=== PATIENT | female | born 1960 | race Caucasian/White ===

== ENCOUNTER → 2021-02-13 16:46 | Outpatient (CLI) | payer OTHER, SELFPAY ==
--- NOTE | ~2021-02-13 | MM_ITS ---
EXAMINATION: MM screening [facility] BI w le HISTORY: Screening mammogram TECHNIQUE: Craniocaudal and mediolateral oblique 3-D tomosynthesis images were obtained and synthetic 2-D images were generated. CAD analysis was submitted and interpreted. COMPARISON: 01/25/2019, 08/14/2017, 07/04/2015 BREAST PARENCHYMAL COMPOSITION: The breasts are heterogeneously dense, which may obscure small masses . FINDINGS: There is no evidence of suspicious mass, calcification, or architectural distortion to sugg est malignancy in either breast. There has been no suspicious interval change. IMPRESSION: 1. No mammographic evidence of malignancy. 2. Recommend routine screening mammography in one year. BI-RADS Category 1: Negative Reviewed, dictated and finalized at location [facility].
== END ==
PROVIDERS: PCP Family Medicine; Visit Provider Family Medicine
DX: Z12.31 Encounter for screening mammogram for malignant neoplasm of breast (principal)
CPT/HCPCS: 77063; 77067

== ENCOUNTER 2023-08-08 08:24 | Emergency (ER) | payer OTHER, SELFPAY ==
--- NOTE | ~2023-08-08 | CT_ITS ---
EXAMINATION: CT abdomen pelvis w con DATE: 08/08/2023 09:10 INDICATION: Mid abdominal pain for 2 days. Vomiting. TECHNIQUE: Computed tomography (CT) of the abdomen and pelvis was performed with 100 CC Omnipaque 350 intravenous contrast. Automated exposure control and iterative reconstruction technique were employe d. Exam dose: 597.19 mGy-cm total exam DLP. COMPARISON: None. FINDINGS: The lung bases are clear. Normal heart size. No pericardial or pleural effusion. Status post cholecystectomy. No hepatic, pancreatic, splenic, and adrenal or renal space-occupying ma ss lesion is evident. Normal splenic size. No bile duct or pancreatic duct dilatation. No urinary tract calculus or hydroureteronephrosis. The urinary bladder is unremarkable. IUD within the uterus. The uterus and adnexal areas are otherwise unremarkable. There is atherosclerotic calcification but normal caliber of the abdominal aorta. No intraperitoneal or retroperitoneal or pelvic mass lesion or adenopathy or ascites. Mild colonic diverticulosis; no CT evidence of diverticulitis. There is liquid stool within the colon and some nondilated fluid containing small bowel segments with occasional air-fluid levels. Findings may be due to enterocolitis. No bowel obstruction, bowel wall thickening, pneumatosis or intraperito kristen free air is detected. Normal appendix. Severe degenerative disc disease at L5-S1. No suspicious osteolytic or osteoblastic lesions are noted. IMPRESSION: Fluid levels in the small bowel and colon, without obstruction, suggesting enterocolitis Normal appendix Status post cholecystectomy Reviewed, dictated and finalized at [facility]. Reviewed, dictated and finalized at location B. IMPRESSION: Fluid levels in the small bowel and colon, without obstruction, flores ggesting enterocolitis Normal appendix Status post cholecystectomy
[2023-08-08 08:15] VITALS: BP 137/75; PULSE 85; RESP 17; TEMP 36.3; O2SAT 100
[2023-08-08 08:43] LABS: Basophils Percent Auto 0.4 % (0.2-1.2); Eosinophils Absolute Auto 0.1 K/mm3 (0-0.3); Eosinophils Percent Auto 0.9 % (0-4.4); Hematocrit 46.6 % (37.0-47.0); Hemoglobin 16.1 g/dL (12.0-15.0); Immature Granulocyte Absolute 0.02 K/mm3 (0.00-0.031); Immature Granulocyte Percent A 0.3 % (0-0.5); Lymphocytes Absolute Auto 0.56 K/mm3 (0.9-3.2); Mean Corpuscular HGB Conc 34.5 g/dl (32-36); Mean Corpuscular Hemoglobin 32.9 pg (26-34); Mean Corpuscular Volume 95.1 fl (80-100); Mean Platelet Volume 11.2 fl (7.4-10.4); Monocytes Absolute Auto 0.5 K/mm3 (0.1-0.6); Monocytes Percent Auto 6.9 % (2.6-8.5); Neutrophils Absolute Auto 5.8 K/mm3 (1.3-6.7); Neutrophils Percent Auto 83.5 % (45.5-73.1); Platelet Count Result 204 k/mm3 (150-375); Red Cell Distribution Width 12.2 % (11.5-14.5)
--- NOTE | 2023-08-08 08:48 | ED.NAVMDI ---
HPI - Nausea/Vomiting/Diarrhea General Chief complaint: Nausea/Vomiting/Diarrhea Stated complaint: n/v/d Time Seen by Provider: 08/08/23 08:27 Source: patient, family and EMS Mode of arrival: EMS History of Present Illness HPI Narrative: 62 years old white female came by ambulance from home complaining of severe nausea vomiting and diarrhea over the last 48 hours with abdominal pain. Associated with chills. She denies any fever or sick contact. She lives with asymptomatic family. History of cholecystectomy and diabetes. She denies any smoking or drinking or using drugs or new prescribe drugs recently. Patient could not take her medication yesterday or today. Related Data Allergies Allergy/AdvReac Type Severity Reaction Status Date / Time No Known Allergies Allergy Verified 08/08/23 08:37 Review of Systems Review of Systems: All systems reviewed & are unremarkable except as noted in HPI and below Exam Narrative: General appearance: Well-developed, well-nourished, ill looking Skin: Normal color Head: Normocephalic, nontraumatic Eyes: Clear conjunctiva ENT: Oropharynx normal, ears normal, nose normal Neck: Supple, nontender Chest and respiratory: Airway patent, no respiratory distress, no accessory muscle use Heart: Regular rate/rhythm Abdomen: Soft, mild diffuse tenderness, no guarding or rebound, no organomegaly, quiet bowel sounds Vascular: Normal peripheral pulses, normal capillary refill. Musculoskeletal: Normal range of motion, nontender back Neurologic: Alert and oriented ?3, HYPO DIPPER is normal as tested, no gross motor deficit Course Vital Signs Vital signs: Vital Signs Temperature 36.3 C L 08/08/23 08:15 Pulse Rate 85 08/08/23 08:15 Respiratory Rate 17 08/08/23 08:15 Blood Pressure 137/75 08/08/23 08:15 Pulse Oximetry 100 08/08/23 08:15 Oxygen Delivery Room Air 08/08/23 08:15 Temperature 36.3 C L 08/08/23 08:15 Pulse Rate 91 08/08/23 09:51 Respiratory Rate 16 08/08/23 09:16 Blood Pressure 135/71 08/08/23 09:51 Pulse Oximetry 100 08/08/23 09:16 Oxygen Delivery Room Air 08/08/23 08:15 MDM - Nausea/Vomiting/Diarrhea MDM Narrative Medical decision making narrative: Patient presents with nausea, vomiting and diarrhea over the last 48 hours. Vital signs are unremarkable, physical examination as above, differential diagnosis include viral gastroenteritis, dehydration, electrolyte imbalance Work-up today showed normal CBC, normal chemistry, clean urine, CT scan showed, finding consistent with gastroenteritis In the ED patient received 2 L of normal saline and 4 mg of Zofran IV with remarkable improvement. Discharged on Zofran and Imodium. the pt was discharged to home.the pt,s condition upon discharge was fair,education was provided to the pt in reference to the final impression,discharge study results,treatment,prognosis and need for follow up . Differential Diagnosis Differential diagnosis: Likely other (As above) Medical Records Attestation: I reviewed the patient's medical records. Lab Data Attestation: I reviewed the patient's lab results. 08/08/23 08:38 08/08/23 08:38 Labs: Lab Results 08/08/23 08/08/23 08/08/23 Range/Units 08:38 09:16 09:47 WBC 7.0 (4.5-10.0) K/mm3 RBC 4.90 (4.2-5.4) M/mm3 Hgb 16.1 H (12.0-15.0) g/dL Hct 46.6 (37.0-47.0) % MCV 95.1 (80-100) fl MCH 32.9 (26-34) pg MCHC 34.5 (32-36) g/dl RDW 12.2 (11.5-14.5) % Plt Count 204 (150-375) k/mm3 MPV 11.2 H (7.4-10.4) fl Immature Gran % (Auto) 0.3 (0-0.5) % Neut % (Auto) 83.5 H (45.5-73.1) % Lymph % (Auto) 8.0 L (18.3-
[2023-08-08 08:54] LABS: Alanine Aminotransferase 32 U/L (6-35); Albumin Level 4.7 g/dL (3.5-5.1); Alkaline Phosphatase 84 U/L (38-126); Anion Gap 13 mmol/L (8-16); Aspartate Amino Transferase 26 U/L (14-36); Bilirubin,Total 1.6 mg/dL (0.2-1.3); Blood Urea Nitrogen 18 mg/dL (7-17); Carbon Dioxide 24 mmol/L (22-30); Chloride 100 mmol/L (98-107); Estimated CRCL calculation 59 ml/min; Estimated Glomerular Filt Rate > 60; Glucose 198 mg/dL (65-110); Lipase 63 U/L (23-300); Potassium 4.4 mmol/L (3.4-5.0); Sodium 137 mmol/L (137-145)
--- NOTE | 2023-08-08 08:58 | PC.NURSE ---
Pt to CT via stretcher at this time
[2023-08-08] MEDS: SODIUM CHLORIDE 0.9% IV 2,000 ML 999 ML IV CONT (09:14)
[2023-08-08 09:16] VITALS: BP 146/68; PULSE 92; RESP 16; O2SAT 100
[2023-08-08 09:48] VITALS: BP 136/67; PULSE 92
[2023-08-08 09:49] VITALS: BP 143/70; PULSE 92
[2023-08-08 09:51] VITALS: BP 135/71; PULSE 91
[2023-08-08 09:54] LABS: Appearance Urine Clear (Clear); Bilirubin Urine Negative (Negative); Blood Urine Negative (Negative); Color Urine Yellow (Yellow); Glucose Urine UA 3+ mg/dL (Negative); Ketones Urine 2+ mg/dL (Negative); Leukocyte Esterase Ur Negative LEU/UL (Negative); Nitrate Urine Negative (Negative); Protein Urine Negative (Negative); Urobilinogen Urine 0.2 mg/dL (<2.0)
[2023-08-08 09:59] LABS: Influenza A QL RT-PCR Negative (Negative); Influenza B QL RT-PCR Negative (Negative); RSV RNA, RT-PCR Negative (Negative); SARS-CoV-2 RNA PCR Negative (Negative)
[2023-08-08 10:00] LABS: Add Urine Microscopic? NO
[2023-08-08 11:07] VITALS: BP 133/70; PULSE 90; RESP 20; O2SAT 100
== END 2023-08-08 11:09 | disposition home or self-care (01) ==
PROVIDERS: Emergency Provider Emergency Medicine; PCP Family Medicine
DX: K52.9 Noninfective gastroenteritis and colitis, unspecified (principal); Z20.822 Contact with and (suspected) exposure to COVID-19; E11.9 Type 2 diabetes mellitus without complications; Z90.49 Acquired absence of other specified parts of digestive tract
CPT/HCPCS: 36415; 74177; 80053; 81003; 81025; 83690; 85025; 87637; 96360; 96361; 99284; J7030; Q9967